=== PATIENT | male | born 1960 | race Caucasian/White ===

== ENCOUNTER 2017-01-26 00:25 | Emergency (ER) | payer MEDICAID, OTHER ==
[~2017-01-26] VITALS: Ht 188 cm; Wt 88.0 kg
[~2017-01-26 00:25] MED LIST: ALBU18HF2 IH; CETI10TA6 PO; FLUT16SP15 BOTHNSTRLS; OMEP20TA80 PO; RIVA20TA PO; TAMS0.4C31 PO
[2017-01-26] MEDS ORDERED: IPRATROPIUM BROMIDE (0.02%) 0.5MG/2.5ML NEB HHN STA (01:33)
[2017-01-26] MEDS ORDERED: ALBUTEROL (0.083%) 2.5MG/3ML NEB HHN STA (01:33)
[2017-01-26 01:58] LABS: BASOPHILS % 0.9 % (0.0-2.0); EOSINOPHILS % 3.1 % (0.0-5.0); HEMATOCRIT. 37.9 % (42.0-52.0); HEMOGLOBIN. 12.5 g/dL (14.0-18.0); LYMPHOCYTES % 23.7 % (20.0-50.0); MEAN CORPUSCULAR HGB CONC 32.9 g/dL (31.0-37.0); MEAN CORPUSCULAR VOLUME 85.1 fL (80.0-94.0); MEAN PLATELET VOLUME 9.5 fl (7.4-10.4); NEUTROPHILS % 63.3 % (40.0-76.0); PLATELET 216 x1000/uL (130-400); RED BLOOD CELL COUNT 4.45 mill/uL (4.7-6.1); WHITE BLOOD COUNT 5.6 x1000/uL (4.5-11.0)
[2017-01-26 02:05] LABS: INR 1.1; PARTIAL THROMBOPLASTIN TIME 28.8 sec (24.0-34.0); PROTHROMBIN TIME 11.4 sec
[2017-01-26 02:14] LABS: ALANINE AMINOTRANSFERASE 23 IU/L (13-61); ALBUMIN 3.2 g/dL (3.4-5.0); ANION GAP 11; CALCIUM 8.5 mg/dL (8.5-10.1); CARBON DIOXIDE 28 mEq/L (21-32); CHLORIDE 105 mEq/L (98-107); INDEX HEMOLYSI 1 (1-3); INDEX ICTERIC 1 (1-4); INDEX LIPEMIC 1 (1-3); NT PRO B-TYPE NATRIURETIC PEP 766 pg/mL (5-125); TROPONIN I < 0.02 ng/mL (0.00-0.04); UREA NITROGEN BLOOD 13 mg/dL (7-21); eGFR > 60 mL/min (>60)
[2017-01-26 04:40] VITALS: BP 129/67
== END 2017-01-26 04:41 | disposition home or self-care (01) ==
LOC: ER 01:55
DX: J44.1 Chronic obstructive pulmonary disease with (acute) exacerbation (principal); I42.9 Cardiomyopathy, unspecified; I50.9 Heart failure, unspecified; I44.7 Left bundle-branch block, unspecified; R94.31 Abnormal electrocardiogram [ECG] [EKG]; Z79.01 Long term (current) use of anticoagulants
CPT/HCPCS: 36415; 71010; 80053; 83880; 84484; 85025; 85610; 85730; 93005; 94644; 99285; J7611; Z7610